=== PATIENT | female | born 1940 | race Caucasian/White ===

== ENCOUNTER 2017-09-22 08:36 | Day surgery (SDC) | payer MEDICARE, OTHER ==
[~2017-09-22] VITALS: Ht 165.1 cm; Wt 55.0 kg
[2017-09-22] MEDS ORDERED: SODIUM CHLORIDE 0.9% 1,000 ML IV ONE (09:29)
[2017-09-22 09:37] VITALS: BP 121/77
[2017-09-22] MEDS ORDERED: LEVO25TA4 PO (10:01)
[2017-09-22] MEDS ORDERED: MULT-516 PO (10:01)
[2017-09-22] MEDS ORDERED: [UNRECOGNIZED DRUG - CODE] PO (10:01)
[2017-09-22] MEDS ORDERED: LORA10TA72 PO (10:01)
[2017-09-22] MEDS ORDERED: HYDR-3237 PO (10:01)
[2017-09-22] MEDS ORDERED: DOCU100C33 PO (10:01)
[2017-09-22] MEDS ORDERED: ASPI-650 PO (10:01)
[2017-09-22] MEDS ORDERED: LOSA50TA6 PO (10:01)
[2017-09-22] MEDS ORDERED: AMLO5TAB2 PO (10:01)
[2017-09-22] MEDS ORDERED: ATOR40TA PO (10:01)
[2017-09-22] MEDS ORDERED: CHOL100014 PO (10:01)
[2017-09-22] MEDS ORDERED: ACET325T14 PO (10:01)
[2017-09-22] MEDS ORDERED: LAMO200T49 PO (10:01)
[2017-09-22] MEDS ORDERED: LEVE500T13 PO (10:01)
[2017-09-22] MEDS ORDERED: RANI150C PO (10:01)
[2017-09-22] MEDS ORDERED: TRAZ50TA18 PO (10:01)
[2017-09-22] MEDS ORDERED: TICAGRELOR 90 MG TABLET ONE (10:20)
[2017-09-22] MEDS ORDERED: FENTANYL PF 100 MCG/2ML ONE (10:20)
[2017-09-22] MEDS ORDERED: MIDAZOLAM 1 MG/ML, 5ML ONE (10:20)
[2017-09-22] MEDS ORDERED: HEPARIN 1,000 UNITS/ML, 10ML ONE (10:21)
[2017-09-22] MEDS ORDERED: LIDOCAINE 2%, 20ML ONE (10:21)
[2017-09-22] MEDS ORDERED: BIVALIRUDIN 250 MG ONE (10:21)
[2017-09-22] MEDS ORDERED: VERAPAMIL 2.5 MG/ML, 2ML ONE ×2 (11:18→11:24)
[2017-09-22] MEDS ORDERED: SODIUM CHLORIDE 0.9% 1,000 ML IV SCH (13:59)
== END 2017-09-22 15:34 ==
LOC: CACL 08:36
PROVIDERS: ATTEND Internal Medicine Cardiovascular Disease
DX: I25.10 Atherosclerotic heart disease of native coronary artery without angina pectoris (principal); I35.0 Nonrheumatic aortic (valve) stenosis; I10 Essential (primary) hypertension; E78.2 Mixed hyperlipidemia; Z79.82 Long term (current) use of aspirin; Z88.1 Allergy status to other antibiotic agents
CPT/HCPCS: 93456; 99156; C1769; C1894; J1644; J2250; J3010; J3490; Q9967; J0583

== ENCOUNTER → 2017-10-04 | Outpatient (CLI) | payer MEDICARE, OTHER ==
[~2017-10-04] MED LIST: ACET325T14 PO; AMLO5TAB2 PO; ASPI-650 PO; ATOR40TA PO; CHOL100014 PO; DOCU100C33 PO; HYDR-3237 PO; LAMO200T49 PO; LEVE500T13 PO; LEVO25TA4 PO; LORA10TA72 PO; LOSA50TA6 PO; MULT-516 PO; OMNIPAQUE 350 MG/ML, 100ML BOTTLE ONE; RANI150C PO; TRAZ50TA18 PO; [UNRECOGNIZED DRUG - CODE] PO
== END | disposition home or self-care (01) ==
LOC: CVU 10:55
PROVIDERS: ATTEND Internal Medicine Cardiovascular Disease
DX: Z01.818 Encounter for other preprocedural examination (principal); I35.0 Nonrheumatic aortic (valve) stenosis; N83.209 Unspecified ovarian cyst, unspecified side; I65.23 Occlusion and stenosis of bilateral carotid arteries; E04.2 Nontoxic multinodular goiter
CPT/HCPCS: 71275; 74174; 93880; 94060; 94726; 94729; Q9967

== ENCOUNTER 2017-10-17 06:14 | Inpatient (IN) | payer MEDICARE, OTHER ==
[~2017-10-17] VITALS: Ht 165.1 cm; Wt 57.4 kg
[~2017-10-17 06:14] MED LIST changes: -OMNIPAQUE 350 MG/ML, 100ML BOTTLE ONE
[2017-10-17] MEDS ORDERED: SODIUM CHLORIDE 0.9% 1,000 ML IV ONE (06:23)
[2017-10-17] MEDS ORDERED: CHLORHEXIDINE 15 ML BOTTLE MM PRN (06:30)
[2017-10-17] MEDS ORDERED: ONDANSETRON 2MG/ML, 2ML IVPush PRN (06:30)
[2017-10-17 06:31] VITALS: BP 125/73
[2017-10-17] MEDS ORDERED: LIDOCAINE-MPF 2% ,5ML ONE ×2 (06:32→06:44)
[2017-10-17] MEDS ORDERED: FENTANYL PF 250 MCG/5ML ONE (06:44)
[2017-10-17] MEDS ORDERED: HEPARIN 1,000 UNITS/ML, 10ML ONE (06:44)
[2017-10-17] MEDS ORDERED: PROTAMINE SULFATE 10 MG/ML, 5ML ONE (06:44)
[2017-10-17 06:58] LABS: INTERNATIONAL NORMALIZED RATIO 1.04 (0.93-1.1); PROTHROMBIN TIME 10.7 Seconds (9.6-11.5)
[2017-10-17 07:02] LABS: ALANINE AMINOTRANSFERASE 25 U/L (12-78); ANION GAP 7 mmol/L (5-15); CALCIUM 9.1 mg/dL (8.5-10.1); CHLORIDE 110 mmol/L (98-107); CREATININE 1.26 mg/dL (0.55-1.02)
[2017-10-17 07:06] LABS: ALKALINE PHOSPHATASE 61 U/L (45-117); BILIRUBIN,TOTAL 0.4 mg/dL (0.2-1.0); TOTAL PROTEIN 7.6 g/dL (6.4-8.2)
[2017-10-17 07:21] LABS: BASOPHILS # (AUTO) 0.03 x10^3/uL (0-0.1); BASOPHILS % (AUTO) 1 % (0-1); EOSINOPHILS # (AUTO) 0.09 x10^3/uL (0-0.4); EOSINOPHILS % (AUTO) 2 % (1-7); LYMPHOCYTES # (AUTO) 1.42 x10^3/uL (1-3.4); LYMPHOCYTES % (AUTO) 26 % (22-44); MD SCAN; MEAN CORPUSCULAR HEMOGLOBIN 31.2 pg (27.0-34.8); MEAN CORPUSCULAR VOLUME 94.6 fL (80-100); MEAN PLATELET VOLUME 9.4 fL (7.4-10.4); MONOCYTES # (AUTO) 0.55 x10^3/uL (0.2-0.8); MONOCYTES % (AUTO) 10 % (2-9); NEUTROPHILS # (AUTO) 3.35 x10^3/uL (1.8-6.8); NEUTROPHILS % (AUTO) 62 % (42-75); PLATELET COUNT 173 x10^3/uL (130-400); RED BLOOD COUNT 3.98 x10^6/uL (3.82-5.3); RED CELL DISTRIBUTION WIDTH 14.1 % (9.6-15.2)
[2017-10-17] MEDS ORDERED: NEOSTIGMINE 1 MG/ML, 10ML ONE (07:33)
[2017-10-17] MEDS ORDERED: PROPOFOL 10 MG/ML, 20ML ONE (07:33)
[2017-10-17] MEDS ORDERED: DEXAMETHASONE 4 MG/ML, 1ML ONE (07:33)
[2017-10-17] MEDS ORDERED: VASOPRESSIN 20 UNIT/ML, 1ML ONE (07:33)
[2017-10-17] MEDS ORDERED: ROCURONIUM 10 MG/ML,10ML ONE (07:33)
[2017-10-17] MEDS ORDERED: SUCCINYLCHOLINE 20 MG/ML, 10ML ONE (07:33)
[2017-10-17] MEDS ORDERED: ONDANSETRON 2MG/ML, 2ML ONE (07:33)
[2017-10-17] MEDS ORDERED: CEFAZOLIN 1,000 MG ONE (07:33)
[2017-10-17] MEDS ORDERED: PHENYLEPHRINE 10 MG/ML ONE (07:33)
[2017-10-17] MEDS ORDERED: CEFAZOLIN PMX 1GM/50ML 50 ML ONE (07:34)
[2017-10-17] MEDS: LOSARTAN 50MG TABLET PO SCH (09:30)
[2017-10-17] MEDS ORDERED: DEXTROSE 50%, 50ML SYRINGE IVPush PRN (09:30)
[2017-10-17] MEDS ORDERED: HYDROcodone/APAP 5/325 TABLET PO PRN (09:30)
[2017-10-17] MEDS ORDERED: GLUCAGON 1 MG IM PRN (09:30)
[2017-10-17] MEDS: DOCUSATE 100 MG CAPSULE PO SCH ×2 (09:30→20:36)
[2017-10-17] MEDS: AMLODIPINE 5 MG TABLET PO SCH (09:30)
[2017-10-17] MEDS: ASPIRIN 81 MG TABLET EC PO SCH (09:30)
[2017-10-17] MEDS ORDERED: DEXTROSE 4 GM TAB.CHEW PO PRN (09:30)
[2017-10-17] MEDS: MULTIVITAMIN 1 TABLET PO SCH (09:30)
[2017-10-17] MEDS: LEVOTHYROXINE 25 MCG TABLET PO SCH (16:56)
[2017-10-17] MEDS: ACETAMINOPHEN 325 MG TABLET PO SCH (16:56)
[2017-10-17 19:54] VITALS: BP 132/72
[2017-10-17] MEDS: SODIUM CHLORIDE FLUSH 10ML SYR IVF SCH (20:35)
[2017-10-17] MEDS: LAMOTRIGINE 200 MG TABLET PO SCH (20:36)
[2017-10-17] MEDS: LEVETIRACETAM 500 MG TABLET PO SCH (20:36)
[2017-10-17] MEDS ORDERED: CLOPIDOGREL 300 MG TABLET PO ONE (21:00)
[2017-10-17] MEDS ORDERED: TRAZODONE 50MG TABLET PO SCH (21:00)
[2017-10-17] MEDS ORDERED: ATORVASTATIN 40 MG TABLET PO SCH (21:00)
[2017-10-17] MEDS: LAMOTRIGINE 25 MG TABLET PO SCH (21:29)
[2017-10-17] MEDS: SODIUM CHLORIDE 0.9% 1,000 ML IV SCH (22:38)
[2017-10-18 01:19] VITALS: BP 107/67
[2017-10-18 07:45] VITALS: BP 116/63
[2017-10-18] MEDS ORDERED: ASPI-621 PO (08:52)
[2017-10-18] MEDS ORDERED: CLOP75TA PO (08:52)
[2017-10-18] MEDS ORDERED: CLOPIDOGREL 75 MG TABLET PO SCH (09:00)
[2017-10-18] MEDS: SODIUM CHLORIDE FLUSH 10ML SYR IVF SCH (09:36)
[2017-10-18] MEDS: DOCUSATE 100 MG CAPSULE PO SCH (09:36)
[2017-10-18] MEDS: LEVOTHYROXINE 25 MCG TABLET PO SCH (09:37)
[2017-10-18] MEDS: MULTIVITAMIN 1 TABLET PO SCH (09:37)
[2017-10-18] MEDS: ASPIRIN 81 MG TABLET EC PO SCH (09:38)
[2017-10-18] MEDS: LEVETIRACETAM 500 MG TABLET PO SCH (09:38)
[2017-10-18] MEDS: LOSARTAN 50MG TABLET PO SCH (09:38)
[2017-10-18] MEDS: AMLODIPINE 5 MG TABLET PO SCH (09:38)
[2017-10-18] MEDS: LAMOTRIGINE 25 MG TABLET PO SCH (09:39)
[2017-10-18] MEDS: ACETAMINOPHEN 325 MG TABLET PO SCH (09:41)
[2017-10-18] MEDS: LAMOTRIGINE 200 MG TABLET PO SCH (09:59)
[2017-10-18 10:04] LABS: ANION GAP 7 mmol/L (5-15); CALCIUM 8.9 mg/dL (8.5-10.1); CHLORIDE 110 mmol/L (98-107); CREATININE 1.34 mg/dL (0.55-1.02)
[2017-10-18 13:42] LABS: BASOPHILS # (AUTO) 0.03 x10^3/uL (0-0.1); BASOPHILS % (AUTO) 0 % (0-1); EOSINOPHILS % (AUTO) 0 % (1-7); LYMPHOCYTES # (AUTO) 0.96 x10^3/uL (1-3.4); LYMPHOCYTES % (AUTO) 10 % (22-44); MD SCAN; MEAN CORPUSCULAR HEMOGLOBIN 31.7 pg (27.0-34.8); MEAN CORPUSCULAR HGB CONC 33.3 g/dL (32.4-35.8); MEAN CORPUSCULAR VOLUME 95.2 fL (80-100); MEAN PLATELET VOLUME 9.7 fL (7.4-10.4); MONOCYTES # (AUTO) 0.72 x10^3/uL (0.2-0.8); MONOCYTES % (AUTO) 7 % (2-9); NEUTROPHILS # (AUTO) 8.02 x10^3/uL (1.8-6.8); NEUTROPHILS % (AUTO) 82 % (42-75); PLATELET COUNT 125 x10^3/uL (130-400); RED BLOOD COUNT 3.51 x10^6/uL (3.82-5.3); RED CELL DISTRIBUTION WIDTH 14.2 % (9.6-15.2)
[2017-10-18 14:00] VITALS: BP 107/56
== END 2017-10-18 16:38 | disposition home or self-care (01) | DRG 266 ==
LOC: ORIP 06:14 → CCU 09:17 → 5SO 17:58
PROVIDERS: ADMIT Internal Medicine Cardiovascular Disease; ATTEND Internal Medicine Cardiovascular Disease
PROC: B24BZZ4 Ultrasonography of Heart with Aorta, Transesophageal (ICD-10-PCS; 2017-10-17)
PROC: 02RF38Z Replacement of Aortic Valve with Zooplastic Tissue, Percutaneous Approach (ICD-10-PCS; principal; 2017-10-17 07:30)
DX: I35.0 Nonrheumatic aortic (valve) stenosis (principal); Z00.6 Encounter for examination for normal comparison and control in clinical research program; N17.0 Acute kidney failure with tubular necrosis; I50.33 Acute on chronic diastolic (congestive) heart failure; E78.2 Mixed hyperlipidemia; I10 Essential (primary) hypertension; Z86.73 Personal history of transient ischemic attack (TIA), and cerebral infarction without residual deficits; Z79.82 Long term (current) use of aspirin; Z79.899 Other long term (current) drug therapy
CPT/HCPCS: 33361; 36415; 80048; 80053; 82330; 82803; 82947; 82962; 83880; 84132; 84295; 85014; 85025; 85347; 85610; 85730; 86850; 86900; 86923; 87081; 93005; 93306; 93312; 93320; 93325; 93355; C1760; C1769; C1894; J0690; J1100; J1644; J2405; J2704; J2710; J2720; J3010; J3490; J0330; J2370; J7030; Q9967

== ENCOUNTER → 2018-01-12 | Outpatient (CLI) | payer MEDICARE, OTHER ==
[~2018-01-12] MED LIST changes: +ASPI-496 PO; +ASPI-621 PO; +CLOP75TA PO
[2018-01-12 10:44] LABS: INTERNATIONAL NORMALIZED RATIO 1.01 (0.93-1.1); PROTHROMBIN TIME 10.5 Seconds (9.6-11.5)
[2018-01-12 10:48] LABS: ALBUMIN 4.2 g/dL (3.4-5.0); ANION GAP 7 mmol/L (5-15); CALCIUM 9.3 mg/dL (8.5-10.1); CHLORIDE 109 mmol/L (98-107)
[2018-01-12 10:52] LABS: ALANINE AMINOTRANSFERASE 21 U/L (12-78); ALKALINE PHOSPHATASE 66 U/L (45-117); BILIRUBIN,TOTAL 0.6 mg/dL (0.2-1.0); TOTAL PROTEIN 7.5 g/dL (6.4-8.2)
[2018-01-12 11:17] LABS: MEAN CORPUSCULAR HEMOGLOBIN 32.6 pg (27.0-34.8); MEAN CORPUSCULAR HGB CONC 33.4 g/dL (32.4-35.8); MEAN CORPUSCULAR VOLUME 97.6 fL (80-100); MEAN PLATELET VOLUME 10.1 fL (7.4-10.4); PLATELET COUNT 142 x10^3/uL (130-400); RED BLOOD COUNT 3.88 x10^6/uL (3.82-5.3); RED CELL DISTRIBUTION WIDTH 13.4 % (9.6-15.2)
[2018-01-12 11:19] LABS: BASOPHILS # (AUTO) 0.02 x10^3/uL (0-0.1); BASOPHILS % (AUTO) 1 % (0-1); EOSINOPHILS # (AUTO) 0.04 x10^3/uL (0-0.4); EOSINOPHILS % (AUTO) 1 % (1-7); LYMPHOCYTES # (AUTO) 1.03 x10^3/uL (1-3.4); LYMPHOCYTES % (AUTO) 20 % (22-44); MD SCAN; MONOCYTES # (AUTO) 0.54 x10^3/uL (0.2-0.8); MONOCYTES % (AUTO) 11 % (2-9); NEUTROPHILS # (AUTO) 3.43 x10^3/uL (1.8-6.8); NEUTROPHILS % (AUTO) 68 % (42-75)
== END | disposition home or self-care (01) ==
LOC: STAR 09:39
PROVIDERS: ATTEND Specialist
DX: R19.00 Intra-abdominal and pelvic swelling, mass and lump, unspecified site (principal); K44.9 Diaphragmatic hernia without obstruction or gangrene; J44.9 Chronic obstructive pulmonary disease, unspecified; R06.4 Hyperventilation; I45.10 Unspecified right bundle-branch block
CPT/HCPCS: 36415; 71046; 80053; 85025; 85610; 85730; 93005

== ENCOUNTER → 2018-10-18 | Outpatient (CLI) | payer MEDICARE, OTHER ==
[~2018-10-18] MED LIST changes: +AMLO-150 PO; -AMLO5TAB2 PO; -ASPI-621 PO; +ASPI81TA45 PO; -LEVE500T13 PO; +LEVE500T22 PO; +LOSA50TA14 PO; -LOSA50TA6 PO; -TRAZ50TA18 PO; +TRAZ50TA66 PO
== END | disposition home or self-care (01) ==
LOC: CVU 09:33
PROVIDERS: ATTEND Internal Medicine Cardiovascular Disease
DX: I08.1 Rheumatic disorders of both mitral and tricuspid valves (principal); E78.5 Hyperlipidemia, unspecified; I10 Essential (primary) hypertension; Z86.73 Personal history of transient ischemic attack (TIA), and cerebral infarction without residual deficits; Z85.43 Personal history of malignant neoplasm of ovary
CPT/HCPCS: 93306

== ENCOUNTER 2019-08-20 14:31 | Outpatient (CLI) | payer MEDICARE, OTHER | END 2019-08-20 23:59 | disposition home or self-care (01) | LOC: CFH 14:31 | PROVIDERS: ATTEND Internal Medicine Cardiovascular Disease | DX: I36.1 Nonrheumatic tricuspid (valve) insufficiency (principal); I11.9 Hypertensive heart disease without heart failure; E78.5 Hyperlipidemia, unspecified; Z85.43 Personal history of malignant neoplasm of ovary | CPT/HCPCS: 93306 ==

== ENCOUNTER → 2020-07-07 | Outpatient (CLI) | payer MEDICARE, OTHER ==
[~2020-07-07] MED LIST changes: +RIVA4.5C4 PO; -[UNRECOGNIZED DRUG - CODE] PO
== END | disposition home or self-care (01) ==
LOC: CVU 13:13
PROVIDERS: ATTEND Internal Medicine Cardiovascular Disease
DX: R60.0 Localized edema (principal)
CPT/HCPCS: 93970